=== PATIENT | female | born 1965 | race Caucasian/White ===

== ENCOUNTER 2016-05-15 10:24 | Emergency (ER) | payer OTHER ==
--- NOTE | 2016-05-15 10:48 | UCPHY ---
H & P Time Seen by Provider: 05/15/16 10:27 Patient Type: Established HPI/ROS: CHIEF COMPLAINT: Low back pain HPI: The patient is a 51-year-old female with a history of periodic low back pain in the past. She has been seen here twice before for the same symptoms over the last few years. Patient states she has had increasing lower back pain , primarily in the left sacral area over the last week. Last night she was an exercise class and felt acute onset of pain to the left lower back. She denies dysuria. She denies fever. She denies numbness, weakness or difficulty walking. She denies incontinence. She denies abdominal pain. REVIEW OF SYSTEMS: Aside from elements discussed in the HPI, a comprehensive 10-point review of systems was reviewed and is negative. PMH: Back pain SOCIAL HISTORY: Denies alcohol or drug abuse. FAMILY HISTORY: Reviewed, noncontributory PHYSICAL EXAM: General:Patient is alert, in no acute distress. She appears in moderate pain. Neck: Normal inspection. Full range of motion. Respiratory:No respiratory distress. Breath sounds normal bilaterally. Cardiovascular: Regular rate and rhythm. Strong peripheral pulses. Normal cap refill. Abdomen:The abdomen is nontender to palpation. No pulsatile mass. Back: Normal to inspection. Mild tenderness to palpation over the sciatic notch noted. No midline tenderness to palpation. Skin: Normal color. No rash. Warm and dry. Extremities: Normal appearance. Full range of motion. 5/5 strength dorsiflexion plantar flexion and hip flexion bilaterally. Neuro: Oriented x3. Normal motor function. Normal sensory function. Smoking Status: Never smoked Allergies/Adverse Reactions: No Known Allergies Allergy (Verified 07/21/14 13:25) Home Medications: Medication Instructions Recorded Hydrocodone/APAP 5/325 [Star 1 - 2 tab PO Q4PRN PRN #20 tab 10/12/15 5/325 (*)] Methocarbamol [Robaxin 750 mg (*)] 750 - 1,500 mg PO QID PRN #30 tab 10/12/15 Cyclobenzaprine [Flexeril] 10 mg PO TID #15 tab 05/15/16 Hydrocodone/APAP 5/325 [Star 1 - 2 tab PO Q4H PRN #10 tab 05/15/16 5/325 (RX)] methylPREDNISolone [Medrol Dose 1 each PO AD #1 ea 05/15/16 Jensen] MDM/Departure - MDM ED Course/Re-evaluation: This patient presents with signs and symptoms consistent with low back strain, possible sciatica. There are no signs or symptoms or red flags to suggest cauda equina syndrome. The patient is not febrile and I have low suspicion for epidural abscess. The patient will be treated with oral steroids, muscle relaxants and pain medicine. I have given her referral to a business office specialist. There is no trauma to suggest fracture and the patient has previously had a negative lumbar spine x-ray. - Depart Disposition: Home, Routine, Self-Care Clinical Impression: Low back pain Condition: Good Instructions: Acute Low Back Pain (ED) Additional Instructions: Followup with a business office specialist within one week. Return to the emergency department for severe pain, fever, numbness, difficulty walking, change in location or nature of pain or other concerns. Use ibuprofen and Tylenol as directed. Try using a heating pad. Prescriptions: Cyclobenzaprine [Flexeril] 10 mg PO TID #15 tab Hydrocodone/APAP 5/325 [Star 5/325 (RX)] 1 - 2 tab PO Q4H PRN #10 tab PRN Reason: Pain, Moderate methylPREDNISolone [Medrol Dose Jensen] 1 each PO AD #1 ea Referrals: Carolyne Rizvi DO [Primary Care Provider] - As per Instructions Vicki Christian DO [Doctor of Osteopathy] - As per Instructions - PQRS PQRS Measurement: 134: Depression screening and followup, PRIME MD-PHQ2 (12 years and older) Over the last 2 weeks, how often have you been bothered by any of the following problems? 1. Feeling down, depressed, or hopeless? 2. Little interest or pleasure in doing things? Patient answered no to both 1 and 2 130: Documentation of medications. Reviewed all patient medications, doses, route and frequency. 226: Do you smoke? No. 51: 18 years old and older with diagnosis of COPD, spirometry performance. Spirometry not performed; equipment not available. Patient has no history of COPD 52: 18 years old and older with COPD and symptoms of COPD or FEV1<60% predicted prescribed a B Agonist. Spirometry not performed; equipment not available.
== END 2016-05-15 11:42 | disposition home or self-care (01) ==
LOC: CED 10:24
DX: M54.5 Low back pain (principal)
CPT/HCPCS: 99214-PO; G0463-PO

== ENCOUNTER → 2017-06-22 | Outpatient (CLI) | payer OTHER, MEDICAID ==
[~2017-06-22] MED LIST: IOPAMIDOL (ISOVUE-300) 100 ML BTL ONE
== END ==
LOC: CIMAGING 13:55
PROVIDERS: ATTEND Family Medicine
DX: N15.1 Renal and perinephric abscess (principal)
CPT/HCPCS: 74176-PO; 74177-PO; Q9967

== ENCOUNTER 2017-06-23 10:01 | Inpatient (IN) | payer OTHER, MEDICAID ==
--- NOTE | 2017-06-23 10:52 | EDPHY ---
H & P Stated Complaint: R flank pain - Personal History LMP (Females 10-55): 15-21 Days Ago Current Tetanus/Diphtheria Vaccine: Yes Current Tetanus Diphtheria and Acellular Pertussis (TDAP): Yes - Medical/Surgical History Hx Asthma: No Hx Chronic Respiratory Disease: No Hx Diabetes: No Hx Cardiac Disease: No Hx Renal Disease: No Hx Cirrhosis: No Hx Alcoholism: No Hx HIV/AIDS: No Hx Splenectomy or Spleen Trauma: No Other PMH: c section, herniated disc, L rotator cuff repair - Social History Smoking Status: Never smoked Time Seen by Provider: 06/23/17 10:43 HPI/ROS: CHIEF COMPLAINT: "I have an abscess on my kidney" HISTORY OF PRESENT ILLNESS: 52-year-old immunocompetent female has been experiencing recent back pain for the past several weeks, was recently started on ciprofloxacin a few days ago for suspected pyelonephritis, prescribed also visiting the [facility]. She had an outpatient CT scan of her abdomen and pelvis yesterday which showed an approximately 2 x 2 x 2 cm right renal cortical abscess was therefore told to come to the ER today. She has complaints of continued pain. She denies: Fever, chills, flu-like symptoms, abdominal pain, chest pain, dyspnea. Last oral intake was at 7:00 a.m. Today PRIMARY CARE PROVIDER: Dr. Carolyne Rizvi REVIEW OF SYSTEMS: A ten point review of systems was performed and is negative with the exception of the items mentioned in the HPI PAST MEDICAL & SURGICAL HISTORY: No pertinent medical or surgical history SOCIAL HISTORY:Nonsmoker PHYSICAL EXAM (Prior to examination, patient consented to physical exam, hands were washed and my usual and customary physical exam procedures followed) 1) GENERAL: Well-developed, well-nourished, alert and oriented. Appears uncomfortable. 2) HEAD: Normocephalic, atraumatic 3) HEENT: Pupils equal, round, reactive to light bilaterally. Sclera anicteric. 4) NECK: Full range of motion, no meningeal signs. 5) LUNGS: Clear auscultation bilaterally, no wheezes, no rhonchi, no retractions. 6) HEART: Regular rate and rhythm, no murmur, no heave, no gallop. 7) ABDOMEN: No guarding, no rebound, no focal tenderness, negative McBurney's, negative Santos's, negative Rovsing's, negative peritoneal sign, 8) MUSCULOSKELETAL: Moving all extremities, no focal areas of tenderness, no obvious trauma. No peripheral edema or discoloration. 9) BACK: Positive right CVA tenderness, no midline vertebral tenderness, no fluctuance, no step-off, no obvious trauma, no visual or palpable abnormality. 10) SKIN: No rash, no petechiae. 11) Psychiatric: Patient is oriented X 3, there is no agitation. DIFFERENTIAL DIAGNOSIS: In no particular include but limited to urosepsis, pyelonephritis, renal abscess (Betina,Aimee Kaitlin) Constitutional: Initial Vital Signs Temperature (C) 36.6 C 06/23/17 10:17 Heart Rate 101 H 06/23/17 10:17 Respiratory Rate 16 06/23/17 10:17 Blood Pressure 137/75 H 06/23/17 10:17 O2 Sat (%) 93 06/23/17 10:17 O2 Delivery Mode Room Air Allergies/Adverse Reactions: No Known Allergies Allergy (Verified 06/23/17 10:14) Home Medications: Medication Instructions Recorded Acetaminophen [Tylenol 325mg (*)] 325 mg PO DAILY PRN 06/23/17 Citalopram Hydrobromide [Celexa] 40 mg PO DAILY 06/23/17 Medical Decision Making ED Course/Re-evaluation: I did not see this patient while she was in the emergency department. However her care was discussed with the PA while the patient was in the department. I agree with treatment plan and management (Ant Gaona) 10:49 a.m.: Care of patient under supervision of secondary supervising physician Dr Gaona with whom I discussed case. Reviewed the patient's imaging results from yesterday showing a right renal cortical abscess. Will plan on obtaining blood work, consultation with Urology. Patient remains NPO since 7:00 a.m. Today. 11:54 a.m.: Consultation with Dr. Jade Copeland who recommends interventional radiology evaluation and admission to hospitalist. 1201 p.m.: Consultation with interventional radiology Dr. Gisell Morfin who reviewed the patient's images, and think that given the size of the lesion that this would be best treated via percutaneous aspiration. 12:20 p.m.: Consultation with hosptialist, admit to Dr Goodson 1:00 p.m.: Consultation with Dr. Gisell Morfin who will coordinate with admitting physician regarding percutaneous drainage 1:30 p.m.: Consultation with [facility] will consult. Agrees with plan at this point of cefepime. (Aimee Moffett) - Data Points Laboratory Results: Laboratory Results 06/23/17 11:05 06/23/17 11:05 06/23/17 06/23/17 06/23/17 11:05 11:05 11:05 WBC RBC Hgb Hct MCV MCH MCHC RDW Plt Count MPV Neut % (Auto) Lymph % (Auto) Worth % (Auto) Eos % (Auto) Baso % (Auto) Nucleat RBC Rel Count Absolute Neuts (auto) Absolute Lymphs (auto) Absolute Monos (auto) Absolute Eos (auto) Absolute Basos (auto) Absolute Nucleated RBC Immature Gran % Immature Gran # ESR PT 13.5 SEC SEC (12.0-15.0) INR 1.01 (0.83-1.16) APTT 33.2 SEC SEC (23.0-38.0) VBG Lactic Acid Sodium 140 mEq/L mEq/L (135-145) Potassium 4.1 mEq/L mEq/L (3.3-5.0) Chloride 101 mEq/L mEq/L (97-110) Carbon Dioxide 26 mEq/l mEq/l (22-31) Anion Gap 13 mEq/L mEq/L (8-16) BUN 11 mg/dL mg/dL (7-23) Creatinine 0.8 mg/dL mg/dL (0.6-1.0) Estimated GFR > 60 Glucose 101 mg/dL H mg/dL (70-100) Calcium 9.3 mg/dL mg/dL (8.5-10.4) Total Bilirubin 0.4 mg/dL mg/dL (0.1-1.4) C-Reactive Protein 134.7 mg/L H mg/L (<10.0) Beta HCG, Qual NEGATIVE Urine Color Urine Appearance Urine pH Ur Specific [place] Urine Protein Urine Ketones Urine Blood Urine Nitrate Urine Bilirubin Urine Urobilinogen Ur Leukocyte Esterase Urine RBC Urine WBC Ur Epithelial Cells Urine Mucus Urine Glucose 06/23/17 06/23/17 06/23/17 11:05 11:05 10:25 WBC 12.54 10^3/uL H 10^3/uL (3.80-9.50) RBC 4.31 10^6/uL 10^6/uL (4.18-5.33) Hgb 13.3 g/dL g/dL (12.6-16.3) Hct 38.4 % % (38.0-47.0) MCV 89.1 fL fL (81.5-99.8) MCH 30.9 pg pg (27.9-34.1) MCHC 34.6 g/dL g/dL (32.4-36.7) RDW 12.6 % % (11.5-15.2) Plt Count 384 10^3/uL 10^3/uL (150-400) MPV 8.6 fL L fL (8.7-11.7) Neut % (Auto) 76.2 % H % (39.3-74.2) Lymph % (Auto) 14.7 % L % (15.0-45.0) Worth % (Auto) 6.5 % % (4.5-13.0) Eos % (Auto) 0.7 % % (0.6-7.6) Baso % (Auto) 0.3 % % (0.3-1.7) Nucleat RBC Rel Count 0.0 % % (0.0-0.2) Absolute Neuts (auto) 9.56 10^3/uL H 10^3/uL (1.70-6.50) Absolute Lymphs (auto) 1.84 10^3/uL 10^3/uL (1.00-3.00) Absolute Monos (auto) 0.81 10^3/uL H 10^3/uL (0.30-0.80) Absolute Eos (auto) 0.09 10^3/uL 10^3/uL (0.03-0.40) Absolute Basos (auto) 0.04 10^3/uL 10^3/uL (0.02-0.10) Absolute Nucleated RBC 0.00 10^3/uL 10^3/uL (0-0.01) Immature Gran % 1.6 % H % (0.0-1.1) Immature Gran # 0.20 10^3/uL H 10^3/uL (0.00-0.10) ESR 78 MM/HR H MM/HR (0-30) PT INR APTT VBG Lactic Acid 1.1 mmol/L mmol/L (0.7-2.1) Sodium Potassium Chloride Carbon Dioxide Anion Gap BUN Creatinine Estimated GFR Glucose Calcium Total Bilirubin C-Reactive Protein Beta HCG, Qual Urine Color YELLOW Urine Appearance HAZY Urine pH 6.0 (5.0-7.5) Ur Specific [place] 1.027 (1.002-1.030) Urine Protein 1+ H (NEGATIVE) Urine Ketones NEGATIVE (NEGATIVE) Urine Blood NEGATIVE (NEGATIVE) Urine Nitrate NEGATIVE (NEGATIVE) Urine Bilirubin NEGATIVE (NEGATIVE) Urine Urobilinogen NEGATIVE EU EU (0.2-1.0) Ur Leukocyte Esterase NEGATIVE (NEGATIVE) Urine RBC 10-15 /hpf H /hpf (0-3) Urine WBC 10-15 /hpf H /hpf (0-3) Ur Epithelial Cells TRACE /lpf /lpf (NONE-1+) Urine Mucus TRACE /lpf /lpf (NONE-1+) Urine Glucose NEGATIVE (NEGATIVE) Medications Given: Discontinued Medications Cefepime HCl 1 gm/ Sterile (Water) 11.3 mls @ 135.6 mls/hr IV EDNOW ONE PRN Reason: Protocol Stop: 06/23/17 12:45 Last Admin: 06/23/17 13:23 Dose: 11.3 mls Departure - Departure Disposition: [facility] Acute Clinical Impression: Renal abscess Condition: Fair
[2017-06-23 11:20] LABS: PLATELET COUNT 384 10^3/uL (150-400)
[2017-06-23 11:35] LABS: INR 1.01 (0.83-1.16); PROTIME(PATIENT) 13.5 SEC (12.0-15.0)
[2017-06-23] MEDS ORDERED: CEFEPIME HCL 1 GM in STERILE WATER INJ 11.3 ML IV ONE (12:41)
[2017-06-23] MEDS ORDERED: PROMETHAZINE HCL 25 MG/ML INJ IVP PRN (14:44)
[2017-06-23] MEDS ORDERED: ONDANSETRON 4 MG/2 ML VIAL IVP PRN (14:44)
[2017-06-23] MEDS ORDERED: ACETAMINOPHEN 325 MG TAB PO PRN (14:44)
[2017-06-23] MEDS ORDERED: ONDANSETRON DISINTEGRATING 4 MG TAB PO PRN (14:44)
--- NOTE | 2017-06-23 15:28 | PDGENHP ---
History and Physical - Chief Complaint kidney pain - History of Present Illness 52 yo F with no significant PMH admitted for pain in her right lower back/ flank. She notes that she was recently being treated fro a UTI which seemed to be improving until she went to visit her father in [place]. She notes her father is an MD, and he was concerned that she was having increased back pain, he became concerned for pyelonephritis and started her on cipro and pyridium. The pain did not significantly improve and she saw her PCP yesterday who ordered a CT scan. This was notable for a 2.5 x 2.5 cm fluid collection, thought be likely an abscess. She was sent here for further evaluation and management. She notes that other than the pain being severe, she is feeling fairly well. She has not had fever or chills, her urination seems normal. History Information - Allergies/Home Medication List Allergies/Adverse Reactions: No Known Allergies Allergy (Verified 06/23/17 10:14) Home Medications: Acetaminophen [Tylenol 325mg (*)] 325 mg PO DAILY PRN 06/23/17 [Last Taken Unknown] Citalopram Hydrobromide [Celexa] 40 mg PO DAILY 06/23/17 [Last Taken 06/23/17] I have personally reviewed and updated: family history, medical history, social history, surgical history - Past Medical History no pertinent PMH - Surgical History Additional surgical history: C section x 2. rotator cuff surgery. herniated disc surgery - Family History Positive for: non-pertinent - Social History Smoking Status: Never smoked Alcohol Use: Occasionally Drug Use: None Additional social history: , 2 daughters Review of Systems Review of Systems: ROS: 10pt was reviewed & negative except for what was stated in HPI & below Physical Exam Physical Exam: Temp Pulse Resp BP Pulse Ox 36.6 C 82 15 127/71 H 93 06/23/17 14:02 06/23/17 14:02 06/23/17 14:02 06/23/17 14:02 06/23/17 14:02 Constitutional: no apparent distress, appears nourished Eyes: PERRL Ears, Nose, Mouth, Throat: moist mucous membranes, hearing normal Cardiovascular: regular rate and rhythym, no murmur, rub, or gallop, No edema Respiratory: no respiratory distress, no rales or rhonchi, clear to auscultation Gastrointestinal: normoactive bowel sounds, soft, non-tender abdomen, tenderness (cva tenderness) Genitourinary: no bladder tenderness Skin: warm, normal color Musculoskeletal: no muscle tenderness Neurologic: AAOx3 Psychiatric: interacting appropriately, not anxious, not encephalopathic Lab Data & Imaging Review 06/23/17 11:05 06/23/17 11:05 WBC 12.54 10^3/uL (3.80-9.50) H 06/23/17 11:05 RBC 4.31 10^6/uL (4.18-5.33) 06/23/17 11:05 Hgb 13.3 g/dL (12.6-16.3) 06/23/17 11:05 Hct 38.4 % (38.0-47.0) 06/23/17 11:05 MCV 89.1 fL (81.5-99.8) 06/23/17 11:05 MCH 30.9 pg (27.9-34.1) 06/23/17 11:05 MCHC 34.6 g/dL (32.4-36.7) 06/23/17 11:05 RDW 12.6 % (11.5-15.2) 06/23/17 11:05 Plt Count 384 10^3/uL (150-400) 06/23/17 11:05 MPV 8.6 fL (8.7-11.7) L 06/23/17 11:05 Neut % (Auto) 76.2 % (39.3-74.2) H 06/23/17 11:05 Lymph % (Auto) 14.7 % (15.0-45.0) L 06/23/17 11:05 Hardy % (Auto) 6.5 % (4.5-13.0) 06/23/17 11:05 Eos % (Auto) 0.7 % (0.6-7.6) 06/23/17 11:05 Baso % (Auto) 0.3 % (0.3-1.7) 06/23/17 11:05 Nucleat RBC Rel Count 0.0 % (0.0-0.2) 06/23/17 11:05 Absolute Neuts (auto) 9.56 10^3/uL (1.70-6.50) H 06/23/17 11:05 Absolute Lymphs (auto) 1.84 10^3/uL (1.00-3.00) 06/23/17 11:05 Absolute Monos (auto) 0.81 10^3/uL (0.30-0.80) H 06/23/17 11:05 Absolute Eos (auto) 0.09 10^3/uL (0.03-0.40) 06/23/17 11:05 Absolute Basos (auto) 0.04 10^3/uL (0.02-0.10) 06/23/17 11:05 Absolute Nucleated RBC 0.00 10^3/uL (0-0.01) 06/23/17 11:05 Immature Gran % 1.6 % (0.0-1.1) H 06/23/17 11:05 Immature Gran # 0.20 10^3/uL (0.00-0.10) H 06/23/17 11:05 ESR 78 MM/HR (0-30) H 06/23/17 11:05 PT 13.5 SEC (12.0-15.0) 06/23/17 11:05 INR 1.01 (0.83-1.16) 06/23/17 11:05 APTT 33.2 SEC (23.0-38.0) 06/23/17 11:05 VBG Lactic Acid 1.1 mmol/L (0.7-2.1) 06/23/17 11:05 Sodium 140 mEq/L (135-145) 06/23/17 11:05 Potassium 4.1 mEq/L (3.3-5.0) 06/23/17 11:05 Chloride 101 mEq/L (97-110) 06/23/17 11:05 Carbon Dioxide 26 mEq/l (22-31) 06/23/17 11:05 Anion Gap 13 mEq/L (8-16) 06/23/17 11:05 BUN 11 mg/dL (7-23) 06/23/17 11:05 Creatinine 0.8 mg/dL (0.6-1.0) 06/23/17 11:05 Estimated GFR > 60 06/23/17 11:05 Glucose 101 mg/dL (70-100) H 06/23/17 11:05 Calcium 9.3 mg/dL (8.5-10.4) 06/23/17 11:05 Total Bilirubin 0.4 mg/dL (0.1-1.4) 06/23/17 11:05 C-Reactive Protein 134.7 mg/L (<10.0) H 06/23/17 11:05 Beta HCG, Qual NEGATIVE 06/23/17 11:05 Urine Color YELLOW 06/23/17 10:25 Urine Appearance HAZY 06/23/17 10:25 Urine pH 6.0 (5.0-7.5) 06/23/17 10:25 Ur Specific [place] 1.027 (1.002-1.030) 06/23/17 10:25 Urine Protein 1+ (NEGATIVE) H 06/23/17 10:25 Urine Ketones NEGATIVE (NEGATIVE) 06/23/17 10:25 Urine Blood NEGATIVE (NEGATIVE) 06/23/17 10:25 Urine Nitrate NEGATIVE (NEGATIVE) 06/23/17 10:25 Urine Bilirubin NEGATIVE (NEGATIVE) 06/23/17 10:25 Urine Urobilinogen NEGATIVE EU (0.2-1.0) 06/23/17 10:25 Ur Leukocyte Esterase NEGATIVE (NEGATIVE) 06/23/17 10:25 Urine RBC 10-15 /hpf (0-3) H 06/23/17 10:25 Urine WBC 10-15 /hpf (0-3) H 06/23/17 10:25 Ur Epithelial Cells TRACE /lpf (NONE-1+) 06/23/17 10:25 Urine Mucus TRACE /lpf (NONE-1+) 06/23/17 10:25 Urine Glucose NEGATIVE (NEGATIVE) 06/23/17 10:25 Visualized and Interpreted imaging results: Yes Interpretation: abd CT: renal fluid collection on right side Assessment & Plan Assessment: 52 yo F with no significant PMH presenting with recent pyelonephritis and small renal abscess # renal abscess: in setting of recent pyelonephritis that has been treated and appears resolved on imaging. She has significant associated pain presumably due to inflammation. Discussed with IR, although the abscess is small, given pain, they will attempt percutaneous aspiration of abscess. Patient has been started on cefepime and will continue for now. ID consulted. # recent pyelonephritis: sp outpatient course of abx, most recently cipro. At this time UA looks clean, urine culture pending, ct not c/w active pyelo. Abx as above. # leukocytosis: in setting of above, otherwise nothing to suggest sepsis, will monitor # dispo: observation status, suspect she will require < 48 hours stay for eval/ mgmt of above Patient new to my care. Old records reviewed and summarized as above.
[2017-06-23] MEDS ORDERED: HYDROmorphone HCL/NS 0.5 MG/ML SYR IVP PRN (15:42)
[2017-06-23] MEDS ORDERED: MIDAZOLAM 2 MG/2 ML VIAL ONE (16:10)
[2017-06-23] MEDS ORDERED: fentaNYL 100 MCG/2 ML INJ ONE (16:11)
[2017-06-23] MEDS ORDERED: HEPARIN 10,000 UNIT/10 ML MDV (1,000 UNIT/ML) IVP PRN (17:36)
[2017-06-23] MEDS ORDERED: NALOXONE HCL 0.4 MG/ML INJ IVP PRN (17:36)
[2017-06-23] MEDS ORDERED: MIDAZOLAM 2 MG/2 ML VIAL IVP PRN (17:36)
[2017-06-23] MEDS ORDERED: PROTAMINE SULFATE 50 MG/5 ML VIAL IVP PRN (17:36)
[2017-06-23] MEDS ORDERED: ALTEPLASE 2 MG VIAL IVP PRN (17:36)
[2017-06-23] MEDS ORDERED: fentaNYL 100 MCG/2 ML INJ IVP PRN (17:36)
[2017-06-23] MEDS ORDERED: FLUMAZENIL 0.5 MG/5 ML MDV IVP PRN (17:36)
[2017-06-23] MEDS ORDERED: GLUCAGON HCL 1 MG VIAL IVP PRN (17:36)
[2017-06-23] MEDS ORDERED: NS 1,000 ML IV SCH (17:45)
[2017-06-23] MEDS ORDERED: LORazepam 2 MG/ML INJ IVP ONE (18:00)
--- NOTE | 2017-06-23 18:05 | PDRADPN ---
Radiology Procedure Note Date of Procedure: 06/23/17 Radiologist: Gisell Morfin Pre-op Diagnosis: RT RENAL ABSCESS Post-op Diagnosis: SAME Indication: SEVERE PAIN. NEEDS SAMPLING Procedure: CT GUIDED RT RENAL ASPIRATION Finding(s): 5CC PURULENT, SEROSANGUINOUS MATERIAL ASPIRATED. Inf/Abcess present in the surg proc area at time of surgery?: Yes Depth: Organ Space (RT RENAL) Complications: SMALL RT PTX DUE TO HIGH LOCATION OF THE ABSCESS.
[2017-06-23] MEDS: HYDROmorphONE/DILAUDID 1 MG/ML INJ IVP PRN (18:30)
[2017-06-23] MEDS: CEFEPIME HCL 1 GM in STERILE WATER INJ 11.3 ML IV SCH (20:24)
[2017-06-23] MEDS: oxyCODONE IR 5 MG TAB PO PRN ×2 (20:26→21:28)
[2017-06-24] MEDS: HYDROmorphONE/DILAUDID 1 MG/ML INJ IVP PRN (00:21)
[2017-06-24] MEDS: LORazepam 0.5 MG TAB PO PRN ×4 (00:25→21:23)
[2017-06-24 05:31] LABS: PLATELET COUNT 351 10^3/uL (150-400)
--- NOTE | 2017-06-24 07:25 | SOAPPROG ---
SOAP Progress Note Assessment/Plan: Assessment: Renal abscess Acute, drained via IR, cultures pending Plan: continue care, wait for cultures 06/24/17 07:23 Subjective: rt flank pain with breathing, no internal pain and seems related to IR perc site Objective: Vital Signs Temp Pulse Resp BP Pulse Ox 36.9 C 77 12 104/57 L 98 06/24/17 04:00 06/24/17 04:00 06/24/17 04:00 06/24/17 04:00 06/24/17 04:00 Microbiology 06/23/17 17:04 Gram Stain - Final Other - Aspirate Laboratory Results 06/24/17 04:54 06/24/17 04:54 06/23/17 06/24/17 06/25/17 05:59 05:59 05:59 Intake Total 1736.3 Balance 1736.3 PT 13.5 SEC (12.0-15.0) 06/23/17 11:05 INR 1.01 (0.83-1.16) 06/23/17 11:05 Physical Exam - Physical Exam General Appearance: alert Neck: supple Respiratory: No respiratory distress Cardiac/Chest: regular rate, rhythm Abdomen: soft Back: CVA tenderness (at rt flank site of PCN, no crepitus or erythema) Skin: warm/dry Extremities: No calf tenderness ICD10 Worksheet Patient Problems: Problems Problem Status Onset Renal abscess Acute
[2017-06-24] MEDS ORDERED: NON-FORMULARY NEW DRUG (Citalopram Hydrobromide [Celexa] 40 MG) PO SCH (09:00)
--- NOTE | 2017-06-24 09:39 | GCON ---
[f rep st] CONSULTATION DATE OF CONSULTATION: 06/24/2017 HISTORY OF PRESENT ILLNESS: This is a 52-year-old lady who has developed a possible UTI and back courtney n, and she was in [place] visiting her father, who is a retired physician, and he thought she had a k idney infection, placed her on Cipro without any cultures, and she returned to [place] and was seen in the emergency room, and also through her PCP, and a CAT scan was ordered. She had a 1-inch diamet er fluid collection in the right kidney, thought to be an abscess, and she underwent evaluation with a CAT scan, which I have reviewed. She had a percutaneous drainage of the abscess. The fluid was 5 mL of purulent fluid. No complications associated with it, and the cultures are pending at the time of the consult, and blood cultures are pending. On the Gram stain, it said there were polymorphonucl ear leukocytes and no organisms seen. She has had no history of infections. She has had no recent d ental work. She has had some infected toenails that have been treated recently, and the question cou ld she have a hematogenous spread of one of those organisms related to paronychial drainage. ALLERGIES: No known drug allergies. HOME MEDICATIONS: Include citalopram, or Celexa, 40 mg daily, acetaminophen, and she has been on the Cipro as prescribed by her father. MEDICATIONS: They have had her on cefepime 1 g every 12 hours, and they have placed her on Lovenox, Dilaudid, Ativan and Zofran. PAST MEDICAL HISTORY: She has had a x2, rotator cuff surgery, herniated disk surgery. FAMILY HISTORY: Noncontributory. SOCIAL HISTORY: Nonsmoker. Occasional alcohol use. She is , with 2 daughters. REVIEW OF SYSTEMS: Negative cardiac, respiratory, GI and endocrine. PHYSICAL EXAM: VITAL SIGNS: Today, vital signs are stable. She is alert and oriented x3. NECK: S upple. RESPIRATORY: No respiratory distress noted. ABDOMEN: Soft. She has some discomfort over t he flank muscles on the right, without erythema or crepitus. LOWER EXTREMITIES: No suggestion of DV T. NEUROLOGIC: She is oriented times person, place and date. LABORATORY DATA: I have reviewed her laboratory values that showed a white blood cell count on 06/23 of 12.54, and on 06/24, white blood cell count was 13.05. She had an INR of 1.01. Blood gases show ed a lactic acid of 1.1. Normal should be less than 2.1. On chemistries, her creatinine was 0.8 and BUN 10. Serum calcium 9.3 and bilirubin 0.4. C-reactive protein 134.7. At the present time, it appears that she has had appropriate care for her renal abscess with [facility] draining it. She had a chest x-ray today that on my interpretation was normal, but Dr. Gray read it and said she had a small pneumothorax on the right side, and there was no rishabh e air into the diaphragm apparent on the x-ray, so IV antibiotics are appropriate. Await cultures mohinder venegas, and presently, no further change in the treatment or assessment at this time. May consider rep eating a renal ultrasound to confirm no reaccumulation of fluid in the next several days. /[id number]/MODL
[2017-06-24] MEDS: CITALOPRAM 20 MG TAB PO SCH (09:53)
[2017-06-24] MEDS: oxyCODONE IR 5 MG TAB PO PRN ×4 (09:54→21:23)
[2017-06-24] MEDS: CEFEPIME HCL 1 GM in STERILE WATER INJ 11.3 ML IV SCH (09:55)
--- NOTE | 2017-06-24 10:13 | ASMTCMCOM ---
CM Note CM Note Notes: Pt admitted with renal abscess and is on IV ABX. ID will consult. DC needs are TBD. Date Signed: 06/24/2017 10:12 AM Electronically Signed By:Dania Sanchez LCSW
[2017-06-24] MEDS: ENOXAPARIN 40 MG/0.4 ML SYR SC SCH (10:20)
--- NOTE | 2017-06-24 11:52 | HOSPPROG ---
Hospitalist Progress Note Assessment/Plan: 52 yo F with no significant PMH presenting with recent pyelonephritis and small renal abscess # renal abscess: in setting of recent pyelonephritis that has been treated and appears resolved on imaging. S/p aspiration of abscess with cultures pending and prelim data showing e coli. Pain increased overnight s/p aspiration. Appreciate ID input, treating with ctx for now. # pyelonephritis: as above # pain: pain from abscess aspiration is relatively severe, will continue IV opiates as needed # leukocytosis: in setting of above, otherwise nothing to suggest sepsis, will monitor # dispo: IP status, will require > 48 hours stay for eval/mgmt of above, high risk requiring IV opiates Subjective: patient with increased pain overnight, pain is severe with movement Objective: Vital Signs Temp Pulse Resp BP Pulse Ox 36.8 C 86 17 119/53 L 97 06/24/17 08:00 06/24/17 08:00 06/24/17 08:00 06/24/17 08:00 06/24/17 08:00 Microbiology 06/23/17 17:04 Gram Stain - Final Other - Aspirate Laboratory Results 06/24/17 04:54 06/24/17 04:54 06/23/17 06/24/17 06/25/17 05:59 05:59 05:59 Intake Total 1736.3 Balance 1736.3 PT 13.5 SEC (12.0-15.0) 06/23/17 11:05 INR 1.01 (0.83-1.16) 06/23/17 11:05 Constitutional: mild distress, appears nourished Eyes: PERRL Ears, Nose, Mouth, Throat: moist mucous membranes, hearing normal Cardiovascular: regular rate and rhythym, no murmur, rub, or gallop, No edema Respiratory: no respiratory distress, no rales or rhonchi, clear to auscultation Gastrointestinal: normoactive bowel sounds, soft, non-tender abdomen, tenderness (cva tenderness) Genitourinary: no bladder tenderness Skin: warm, normal color Musculoskeletal: no muscle tenderness Neurologic: AAOx3 Psychiatric: interacting appropriately, not anxious, not encephalopathic ICD10 Worksheet Patient Problems: Problems Problem Status Onset Renal abscess Acute
[2017-06-24] MEDS: cefTRIAXone 2 GM in STERILE WATER INJ 20 ML IV SCH (14:55)
--- NOTE | 2017-06-24 15:57 | GCON ---
[f rep st] CONSULTATION INFECTIOUS DISEASE CONSULTATION DATE OF CONSULTATION: 06/24/2017 REFERRING PHYSICIAN: Merrick Goodson MD REASON FOR CONSULTATION: Right-sided renal abscess. HISTORY OF PRESENT ILLNESS: The patient is a 52-year-old female without significant past medical his tory who describes developing symptoms of urinary tract infection, primarily characterized by mild dy suria, urinary frequency and urgency approximately 2 weeks ago. She did not seek care for the sympto ms and they gradually resolved. She subsequently went to visit her family in [place] and while in [facility], developed significant right-sided flank pain. This was associated with a low-grade fever to 100 .1. She did not have any rigors. While visiting her family, she was started on ciprofloxacin by her father who is a physician. After initiation of Cipro, the patient notes that her back pain graduall y improved; however, after returning to [place], she experienced progressive right flank pain. She did not experience recurrent urinary tract symptoms, fever or chills. She was not experiencing nause a, vomiting, or diarrhea. Based on the significant flank pain, she underwent CT scan of the abdomen and pelvis, which showed ev idence of a 2.5 x 2.3 x 2.6 cm low-density lesion in the posterior upper pole of the right kidney wit h surrounding edema and subtle peripheral enhancement. This was felt to be suggestive of a renal abs cess. Thereafter, she underwent percutaneous aspiration of the collection, which yielded approximate ly 5 mL of purulent fluid. Aspirate showed 4+ white blood cells with no organisms being seen, and cu lture is currently pending. Urine culture obtained on 06/23/2017, shows greater than 100,000 of 4 co lony types. Patient was taking her ciprofloxacin up until the point of admission. After admission, she has been treated with cefepime 1 g IV q.12 hours. The patient notes post-drainage that she feels significantly improved, although has persistent right flank pain, which is exacerbated by yawning, s neezing, or coughing. Given the above findings, I am now asked to assist in her ongoing management. PAST MEDICAL HISTORY: UTI approximately 30 years ago. PAST SURGICAL HISTORY: x2, rotator cuff repair. CURRENT MEDICATIONS: Cefepime 1 g IV q.12 hours, Celexa 40 mg p.o. daily, Lovenox 40 mg subcu daily, Dilaudid as needed. ALLERGIES: No known drug allergies. SOCIAL HISTORY: Patient does not smoke or drink alcohol. She works in real estate relocation. Pet dog at home. Traveled to [place] recently. No other unusual travel. FAMILY HISTORY: Mother with stroke. REVIEW OF SYSTEMS: Outside that noted in the HPI, the remainder of 10 system review is unremarkable. PHYSICAL EXAMINATION: VITAL SIGNS: Temperature 36.6, heart rate 94, respiratory rate 17, blood pres sure 109/72, oxygen saturation 99% on room air. GENERAL: Patient is a thin female in no acute distr ess. She appears nontoxic. She does have paroxysm of pain with sneezing. HEENT: No scleral icteru s, conjunctival injection, or conjunctival petechiae. Oropharynx Is clear without lesions. Mucous m embranes are moist. There is no nasal discharge. There is no tenderness over the sinuses. NECK: S upple without palpable lymphadenopathy or thyromegaly. CHEST: Clear to auscultation bilaterally wit hout adventitious sounds. Respiratory effort is normal. CARDIOVASCULAR: Regular rate and rhythm wi thout murmurs, gallops, or rubs. ABDOMEN: Soft, nontender, nondistended. There is no palpable orga nomegaly. Bowel sounds are present. BACK: Dressed post-percutaneous aspiration. There is no CVA t enderness present. MUSCULOSKELETAL: No cyanosis, clubbing, or edema. SKIN: No rash is present. N o stigmata of endocarditis. Skin is warm and dry to touch. NEUROLOGIC: Patient is alert and intera cts appropriately with examiner. Cranial nerves 2 through 12 are grossly intact. Sensation is gross ly intact. LYMPHATICS: No cervical or supraclavicular nodes. LABORATORY/IMAGING: White blood cell count 13.1, hematocrit 36.4, platelets 351, neutrophils 66%, ly mphocytes 23%. Serum creatinine is 0.8. C-reactive protein 134. Beta HCG is negative. Venous lact ate is 1.1. INR is 1.0. Urinalysis shows 10-15 red blood cells and 10-15 white blood cells. Gram s tain from the renal aspirate shows 4+ white blood cells with no organisms. Blood cultures x2 are pen ding. CT images as outlined above, which have been reviewed and interpreted by me today. IMPRESSION: Right-sided renal abscess: Most likely, this will be due to an enteric maycol. Patient did respond initially from a clinical perspective to ciprofloxacin suggesting gram-negative ponce etiol ogy. Escherichia coli or Klebsiella would be most likely. Less likely potential causes would includ e gram-positive maycol, such as Enterococcus faecalis. Patient does not have any risk factors for Pse udomonas. Extended spectrum beta-lactamase producing Escherichia coli are a consideration, although currently of relatively low prevalence. The abscess is now post-drainage with cultures currently pen ding. RECOMMENDATIONS: 1. Ceftriaxone 2 g IV daily. 2. Discontinue cefepime. 3. Await blood and renal abscess cultures with modification of antibiotic therapy accordingly. 4. Follow clinical response to above measures. 5. Anticipate patient will require prolonged course of antibiotic therapy, which ultimately will be based on clinical progress over time. 6. Thank you for this consultation. We will continue to follow the patient with you. /[id number]/MODL
--- NOTE | 2017-06-24 22:23 | PDMN ---
Medical Necessity Medical necessity: Urologic Disease GRG (renal abscess requiring drainage: patient presents with R lower back and flank pain after recent treatment for UTI ; CT shows renal abscess that was drained percutaneously by IR; ongoing leukocytosis/WBC 12,540 -> 13,000, aspirate + for E Coli; LOS will be > 2 midnights for ongoing IV antibiotics.). .
[2017-06-25] MEDS: oxyCODONE IR 5 MG TAB PO PRN ×5 (00:11→21:43)
[2017-06-25] MEDS: LORazepam 0.5 MG TAB PO PRN ×4 (03:33→21:42)
[2017-06-25] MEDS: cefTRIAXone 2 GM in STERILE WATER INJ 20 ML IV SCH (08:32)
[2017-06-25] MEDS: CITALOPRAM 20 MG TAB PO SCH (08:33)
[2017-06-25] MEDS: ENOXAPARIN 40 MG/0.4 ML SYR SC SCH (08:35)
--- NOTE | 2017-06-25 09:17 | SOAPPROG ---
SOAP Progress Note Assessment/Plan: Assessment: Renal abscess Acute, drained via IR, cultures e.coli Plan: continue care, continue care 06/25/17 09:12 Objective: Vital Signs Temp Pulse Resp BP Pulse Ox 36.4 C 75 16 105/58 L 91 L 06/25/17 08:00 06/25/17 08:00 06/25/17 08:00 06/25/17 08:00 06/25/17 08:00 Microbiology 06/23/17 17:04 Gram Stain - Final Other - Aspirate 06/23/17 17:04 Mycobacterial Smear (VANGIE) - Final Other - Aspirate Laboratory Results 06/24/17 04:54 06/24/17 04:54 06/24/17 06/25/17 06/26/17 05:59 05:59 05:59 Intake Total 1736.3 1320 Balance 1736.3 1320 PT 13.5 SEC (12.0-15.0) 06/23/17 11:05 INR 1.01 (0.83-1.16) 06/23/17 11:05 ICD10 Worksheet Patient Problems: Problems Problem Status Onset Renal abscess Acute
--- NOTE | 2017-06-25 09:44 | PCMIDPN ---
Assessment/Plan: Assessment: Right upper pole abscess of the kidney. Aspiration from yesterday is growing E coli. No sensitivities are available yet. Plan to continue the IV ceftriaxone. Patient continues to be in some moderate discomfort. Await sensitivities before choosing long-term therapy. Open question is whether this was caused by a fluoroquinolone resistant E coli strain or whether she has a sensitive E coli strain that happened to developed an abscess due to natural history of disease before treatment. Plan: 1. Continue ceftriaxone. 2. Await sensitivity pattern for the E coli isolate. 3. Design outpatient antibiotic course completion once sensitivity pattern available. 06/25/17 09:37 Subjective: Patient is resting in her hospital bed. She grimaces frequently secondary to right flank pain. This is with the slightest movement. She wishes to be discharged to go to her daughter's graduation this weekend. I think that is a reasonable expectation. However today is not the day. No fevers or chills. Objective: Ceftriaxone # 2 Vital Signs Temp Pulse Resp BP Pulse Ox 36.4 C 75 16 105/58 L 91 L 06/25/17 08:00 06/25/17 08:00 06/25/17 08:00 06/25/17 08:00 06/25/17 08:00 Microbiology 06/23/17 17:04 Gram Stain - Final Other - Aspirate 06/23/17 17:04 Mycobacterial Smear (VANGIE) - Final Other - Aspirate Laboratory Results 06/24/17 04:54 06/24/17 04:54 06/24/17 06/25/17 06/26/17 05:59 05:59 05:59 Intake Total 1736.3 1320 Balance 1736.3 1320 ESR 78 MM/HR (0-30) H 06/23/17 11:05 C-Reactive Protein 134.7 mg/L (<10.0) H 06/23/17 11:05 - Physical Exam General Appearance: WD/WN, alert, non-toxic Respiratory: lungs clear, normal breath sounds, No respiratory distress Cardiac/Chest: regular rate, rhythm, No tachycardia Extremities: non-tender, normal inspection Skin: normal color, warm/dry, No rash Neuro/Psych: alert, normal mood/affect, oriented x 3 ICD10 Worksheet Patient Problems: Problems Problem Status Onset Renal abscess Acute
--- NOTE | 2017-06-25 15:29 | HOSPPROG ---
Hospitalist Progress Note Assessment/Plan: 52 yo F with no significant PMH presenting with recent pyelonephritis and small renal abscess # renal abscess: in setting of recent pyelonephritis that has been treated and appears resolved on imaging. S/p aspiration of abscess with cultures showing e coli but pending sensitivities. Continued to have severe pain as below. Continued on ctx for now pending final sens, appreciate ID. # pyelonephritis: as above # pain: pain from abscess aspiration is relatively severe, will continue IV opiates as needed # leukocytosis: in setting of above, otherwise nothing to suggest sepsis, will monitor # dispo: IP status, will require > 48 hours stay for eval/mgmt of above, high risk requiring IV opiates Care plan reviewed with DR. Bland present at bedside. Subjective: no significant overnight events, patient notes pain continues to be severe Objective: Vital Signs Temp Pulse Resp BP Pulse Ox 36.6 C 73 16 99/58 L 94 06/25/17 12:00 06/25/17 12:00 06/25/17 12:00 06/25/17 12:00 06/25/17 12:00 Microbiology 06/23/17 17:04 Gram Stain - Final Other - Aspirate 06/23/17 17:04 Mycobacterial Smear (VANGIE) - Final Other - Aspirate Laboratory Results 06/24/17 04:54 06/24/17 04:54 06/24/17 06/25/17 06/26/17 05:59 05:59 05:59 Intake Total 1736.3 1320 Balance 1736.3 1320 PT 13.5 SEC (12.0-15.0) 06/23/17 11:05 INR 1.01 (0.83-1.16) 06/23/17 11:05 Constitutional: mild distress, appears nourished Eyes: PERRL Ears, Nose, Mouth, Throat: moist mucous membranes, hearing normal Cardiovascular: regular rate and rhythym, no murmur, rub, or gallop, No edema Respiratory: no respiratory distress, no rales or rhonchi, clear to auscultation Gastrointestinal: normoactive bowel sounds, soft, non-tender abdomen, tenderness (cva tenderness) Genitourinary: no bladder tenderness Skin: warm, normal color Musculoskeletal: no muscle tenderness Neurologic: AAOx3 Psychiatric: interacting appropriately, not anxious, not encephalopathic ICD10 Worksheet Patient Problems: Problems Problem Status Onset Renal abscess Acute
--- NOTE | 2017-06-25 16:02 | ASMTCMCOM ---
CM Note CM Note Notes: Pt had ID consult and will likely require LT ABX. Cultures pending. CM will continue to follow. Date Signed: 06/25/2017 04:01 PM Electronically Signed By:Dania Sanchez LCSW
[2017-06-26] MEDS: oxyCODONE IR 5 MG TAB PO PRN ×3 (04:10→11:23)
[2017-06-26] MEDS: CITALOPRAM 20 MG TAB PO SCH (08:47)
[2017-06-26] MEDS: cefTRIAXone 2 GM in STERILE WATER INJ 20 ML IV SCH (08:48)
[2017-06-26] MEDS: ENOXAPARIN 40 MG/0.4 ML SYR SC SCH (08:53)
[2017-06-26 09:00] VITALS: BP 122/60
--- NOTE | 2017-06-26 11:00 | PDDCSUM ---
Discharge Summary Discharge Summary: Dates of service 06/23-06/26/17 Consultations: IR, Infectious disease, urology Procedures performed: percutaneous renal abscess drainage Hospital course by problem: 52 yo F with no significant PMH presenting with recent pyelonephritis and small renal abscess # renal abscess: in setting of recent pyelonephritis and s/p aspiration of abscess with cultures showing e coli sensitive to fluoroquinolones.Pain initially severe but eventually able to be controlled with oral pain meds. Dc' ed on levoquin to complete course, 2 weeks post drainage. Will f/u with ID after dc # pyelonephritis: as above # pain: pain from abscess aspiration is relatively severe, weaned off of IV opiates at dc # leukocytosis: in setting of above, otherwise nothing to suggest sepsis No items pending at time of discharge Discharged home f/u with ID, PCP > 35 min spent in dc, more than half in coordination of care
--- NOTE | 2017-06-26 11:00 | PCMIDPN ---
Assessment/Plan: R sided renal abscess Ceftriaxone 2gm IV daily Objective: Vital Signs Temp Pulse Resp BP Pulse Ox 36.4 C 71 16 122/60 H 94 06/26/17 08:00 06/26/17 08:00 06/26/17 08:00 06/26/17 08:00 06/26/17 08:00 Microbiology 06/23/17 17:04 Gram Stain - Final Other - Aspirate Laboratory Results 06/26/17 04:20 06/24/17 04:54 06/25/17 06/26/17 06/27/17 05:59 05:59 05:59 Intake Total 1320 1970 Balance 1320 1970 ESR 78 MM/HR (0-30) H 06/23/17 11:05 C-Reactive Protein 134.7 mg/L (<10.0) H 06/23/17 11:05 ICD10 Worksheet Patient Problems: Problems Problem Status Onset Renal abscess Acute
== END 2017-06-26 11:33 | disposition home or self-care (01) | DRG 690 ==
LOC: OBSVTOIN 12:21 → F1N 13:59
PROVIDERS: ADMIT Internal Medicine; ATTEND Internal Medicine
PROC: 0T903ZX Drainage of Right Kidney, Percutaneous Approach, Diagnostic (ICD-10-PCS; principal; 2017-06-23)
DX: N15.1 Renal and perinephric abscess (principal); N12 Tubulo-interstitial nephritis, not specified as acute or chronic; B96.20 Unspecified Escherichia coli [E. coli] as the cause of diseases classified elsewhere; D72.829 Elevated white blood cell count, unspecified; Z87.440 Personal history of urinary (tract) infections
CPT/HCPCS: G0378; J0692; J0696; J1170; J1650; J2060; J2250; J3010

== ENCOUNTER 2017-10-10 16:42 | Emergency (ER) | payer OTHER, MEDICAID ==
--- NOTE | 2017-10-10 17:17 | EDPHY ---
H & P Time Seen by Provider: 10/10/17 16:51 HPI/ROS: CHIEF COMPLAINT: Low back pain HISTORY OF PRESENT ILLNESS: This is a 52-year-old female was had episodic back problems over the course last 5 years. At least on 1 occasion she has required physical therapy. However, it never gets a bad that she required any imaging as whenever last that long. This time around she was working on a fence line and cleaning it up of some debris. However issues bending over she could feel a sudden surge of discomfort over the midline sacrum. There is no fall nor there was anything that struck her. She has since had pain in that area it has been getting worse. This is at approximately 9:00 a.m.. She has tried some ibuprofen but it really did help, 400 mg. P worse when she tries to stand up straight Q achiness R some radiation to the right hip S moderate to severe T precipitated by bending as noted above, getting worse over the last 9 hr She did have a problem with right flank pain this past May ultimately diagnosed as a kidney abscess. However the pain was decidedly different than this 1 in different location as this is lumbar at the belt line. Further, she had dysuric symptoms at the time Bowel or bladder incontinence: None Prior spine instrumentation: None Prior spine imaging: None Pt queried and denies: prior hx of substance abuse, family history of substance abuse, or current or prior psychiatric history. [place] drug monitoring: She received 32 tablets of narcotics in June associated with her renal abscess. She also had a prescription for alprazolam last fall. Finally, she is on monthly dosing for attention deficit hyperactivity disorder with dextroamphetamine. REVIEW OF SYSTEMS: Constitutional: No fever, no chills. Gastrointestinal: abdominal pain. Genitourinary: No hematuria or frequency. Skin: No rashes. Neurological: No numbness or tingling Smoking Status: Never smoked Physical Exam: General: Well-developed well-nourished. Nontoxic, however looks uncomfortable as I enter the room she is standing hanging onto the side rail of the stretcher. Afebrile. Vital signs are stable. Back: No spasm. No rashes. Range of motion limited, in particular with extension SLR: Worsens the back pain does not cause radicular symptoms Great Toe Extension: Normal Patellar Reflex: 2+ Ankle Reflex: 1+ Sensation: Normal sensation. Constitutional: Initial Vital Signs Temperature (C) 36.7 C 10/10/17 16:47 Heart Rate 81 10/10/17 16:47 Respiratory Rate 16 10/10/17 16:47 Blood Pressure 114/56 L 10/10/17 16:47 O2 Sat (%) 95 10/10/17 16:47 O2 Delivery Mode Room Air Allergies/Adverse Reactions: No Known Allergies Allergy (Verified 10/10/17 16:46) Home Medications: Medication Instructions Recorded Citalopram Hydrobromide [Celexa] 40 mg PO DAILY 06/23/17 Cyclobenzaprine [Flexeril 10 MG 10 mg PO HS PRN #10 tab 10/10/17 (*)] Hydrocodone/APAP 5/325 [Welda 1 tab PO Q4 #10 tab 10/10/17 5/325 (*)] Ibuprofen [Motrin (*)] 600 mg PO TID #21 tab 10/10/17 Medical Decision Making ED Course/Re-evaluation: As I met with the patient we discussed the plan of conservative management with medications and rest and ice to allow things to heal on their own. Further, we discussed that she may in fact need be a candidate for physical therapy, but is too early to tell. Follow-up is important. Further, I discussed given her p.o. Percocet Verses subcu morphine and she opted for the latter. I warned her about the problems related to narcotic use and she is a low risk profile thus she has opted to take some Vicodin for the next few days. Differential Diagnosis: Differential diagnosis includes but not limited to: Fracture, Sprain, Strain, Acute Degenerative Disc, Disc Herniationa, Radiculopathy, Sacroiliac dysfunction, Epidural Abscess, kidney stone, pyelonephritis.. - Data Points Medications Given: Discontinued Medications Cyclobenzaprine HCl (Flexeril) 10 mg PO EDNOW ONE Stop: 10/10/17 18:53 Last Admin: 10/10/17 18:59 Dose: 10 mg Morphine Sulfate (Morphine) 6 mg SC EDNOW ONE Stop: 10/10/17 17:56 Last Admin: 10/10/17 18:27 Dose: Not Given Morphine Sulfate (Morphine) 10 mg IVP EDNOW ONE Stop: 10/10/17 18:13 Last Admin: 10/10/17 18:21 Dose: 10 mg Oxycodone/Acetaminophen (Percocet 5/325mg Prepack#4) 1 btl TAKEDESTINY EDNOW ONE Stop: 10/10/17 18:48 Last Admin: 10/10/17 18:58 Dose: 1 btl Departure - Departure Disposition: Home, Routine, Self-Care Clinical Impression: Acute degnerative disk Back pain Qualifiers: Back pain location: low back pain Chronicity: acute Back pain laterality: midline Sciatica presence: without sciatica Qualified Code(s): M54.5 - Low back pain Condition: Good Instructions: Hydrocodone/Acetaminophen (By mouth), Ibuprofen (By mouth), Cyclobenzaprine (By mouth), Low Back Strain (ED), Lower Back Exercises (ED) Additional Instructions: Apply ice 20 min 4 times daily Begin Ovidio the prone position followed by gentle cobra later in the week Medications as follows: Flexeril 10 mg at bedtime-as this medication may cause sedation, no operating machinery for 16 hr after the dose Ibuprofen 600 mg 3 times daily for one week. With food. Vicodin for pain #10, 6 to go. - flush these down the toilet once you no longer need them You were given morphine here in the ER. It is important you do not drive or drink or worker machinery for at least 24 hours See her doctor in 3- days time for consideration of physical therapy if not much improved.. Referrals: Carolyne Rizvi DO [Primary Care Provider] - As per Instructions Prescriptions: Cyclobenzaprine [Flexeril 10 MG (*)] 10 mg PO HS PRN #10 tab PRN Reason: Sleep/Insomnia Hydrocodone/APAP 5/325 [Welda 5/325 (*)] 1 tab PO Q4 #10 tab Ibuprofen [Motrin (*)] 600 mg PO TID #21 tab
[2017-10-10] MEDS ORDERED: OXYCODONE/APAP 5/325MG PREPACK#4 BTL TAKEHOME ONE (18:47)
[2017-10-10] MEDS ORDERED: CYCLOBENZAPRINE 10 MG TAB ONE (18:51)
[2017-10-10] MEDS ORDERED: CYCLOBENZAPRINE 10 MG TAB PO ONE (18:52)
[2017-10-10 19:01] VITALS: BP 113/60
== END 2017-10-10 19:00 | disposition home or self-care (01) ==
LOC: CED 16:42
DX: M54.5 Low back pain (principal); M51.36 Other intervertebral disc degeneration, lumbar region
CPT/HCPCS: 96374; J2270

== ENCOUNTER → 2017-10-14 | Outpatient (CLI) | payer OTHER, MEDICAID | LOC: CIMAGING 09:35 | PROVIDERS: ATTEND Family Medicine | DX: M51.36 Other intervertebral disc degeneration, lumbar region (principal); M51.37 Other intervertebral disc degeneration, lumbosacral region | CPT/HCPCS: 72100-PO ==